=== PATIENT | male | born 2005 | race Caucasian/White ===

== ENCOUNTER 2025-07-01 22:01 | Inpatient (IN) | payer MEDICAID ==
[~2025-07-01] VITALS: Ht 182.9 cm; Wt 73.9 kg
[2025-07-01 22:04] VITALS: O2SAT 100
[2025-07-01 23:34] LABS: BASOPHILS % 0.2 % (0.0-2.0); EOSINOPHILS % 1.7 % (0.0-5.0); HEMATOCRIT. 41.5 % (42.0-52.0); HEMOGLOBIN. 13.5 g/dL (14.0-18.0); LYMPHOCYTES % 9.6 % (20.0-50.0); MEAN PLATELET VOLUME 10.9 fl (7.4-10.4); MONOCYTES % 6.9 % (2.0-8.0); NEUTROPHILS % 81.6 % (40.0-76.0); PLATELET 191 x1000/uL (130-400); RED BLOOD CELL COUNT 4.82 mill/uL (4.7-6.1); RED CELL DISTRIBUTION WIDTH 14.7 % (11.6-14.6)
[2025-07-01 23:45] LABS: CREATININE 0.6 mg/dL (0.6-1.3); TROPONIN I HIGH SENSITIVITY < 4 ng/L (3.0-53); UREA NITROGEN BLOOD 8 mg/dL (9-23)
[2025-07-01 23:47] LABS: ASPARTATE AMINOTRANSFERASE 10 IU/L (<34); BILIRUBIN DIRECT 0.2 mg/dL (<=3.0); BILIRUBIN TOTAL 0.5 mg/dL (0.1-1.0)
[2025-07-01 23:48] LABS: PROTEIN TOTAL 6.3 g/dL (6.0-8.3)
[2025-07-02] MEDS: CALCIUM GLUCONATE 1GM PREMIX 50 ML IV NR (00:55)
[2025-07-02] MEDS: POTASSIUM CHLORIDE 20MEQ/PACKET PO NR (00:56)
[2025-07-02] MEDS: MAGNESIUM 2 G PREMIX 50 ML IV NR (02:36)
[2025-07-02] MEDS ORDERED: IPRATROPIUM/ALBUTEROL 0.5-3(2.5)MG/3ML NEB HHN PRN (03:15)
[2025-07-02] MEDS ORDERED: ACETAMINOPHEN 325MG TABLET PO PRN ×2 (03:15)
[2025-07-02] MEDS ORDERED: ONDANSETRON HCL 4MG/2ML INJ IV PRN (03:15)
[2025-07-02] MEDS ORDERED: ZOLPIDEM TARTRATE 5MG TABLET PO PRN (03:15)
[2025-07-02 03:30] VITALS: BP 115/56; PULSE 47; RESP 16; TEMP 36.6404
[2025-07-02 08:00] VITALS: BP 122/58; PULSE 60; RESP 18; TEMP 36.7; O2SAT 100
[2025-07-02 12:00] VITALS: BP 126/73; PULSE 55; RESP 18; TEMP 36.3; O2SAT 100
[2025-07-02 13:22] LABS: LDL CHOLESTEROL 83.0 mg/dL (5-100); PHOSPHORUS 2.8 mg/dL (2.5-4.9); TRIGLYCERIDE 78.0 mg/dL (0-150)
[2025-07-02 13:23] LABS: TROPONIN I HIGH SENSITIVITY < 4 ng/L (3.0-53)
[2025-07-02 13:26] LABS: T4 FREE 1.41 ng/dL (0.89-1.76)
[2025-07-02 16:00] VITALS: BP 111/61; PULSE 50; RESP 18; TEMP 36.4; O2SAT 100
[2025-07-02 20:00] VITALS: BP 115/73; PULSE 49; RESP 16; TEMP 36.7; O2SAT 100
[2025-07-02 21:25] LABS: CREATINE KINASE MB FRACTION < 0.5 ng/mL (0.5-3.6); TROPONIN I HIGH SENSITIVITY < 4 ng/L (3.0-53)
[2025-07-03] VITALS: BP 118/74; PULSE 52; RESP 16; TEMP 36.5; O2SAT 99
[2025-07-03 04:00] VITALS: BP 111/54; PULSE 45; RESP 16; TEMP 36.4; O2SAT 98
[2025-07-03 06:03] LABS: BASOPHILS % 0.6 % (0.0-2.0); EOSINOPHILS % 3.7 % (0.0-5.0); HEMATOCRIT. 41.6 % (42.0-52.0); HEMOGLOBIN. 13.7 g/dL (14.0-18.0); LYMPHOCYTES % 26.3 % (20.0-50.0); MEAN PLATELET VOLUME 10.8 fl (7.4-10.4); MONOCYTES % 8.8 % (2.0-8.0); NEUTROPHILS % 60.6 % (40.0-76.0); PLATELET 193 x1000/uL (130-400); RED BLOOD CELL COUNT 4.87 mill/uL (4.7-6.1); RED CELL DISTRIBUTION WIDTH 15.3 % (11.6-14.6)
[2025-07-03 06:13] LABS: CREATININE 0.8 mg/dL (0.6-1.3); UREA NITROGEN BLOOD 7 mg/dL (9-23)
[2025-07-03 08:00] VITALS: BP 121/56; PULSE 49; RESP 16; TEMP 36.9; O2SAT 98
[2025-07-03 12:00] VITALS: BP 124/65; PULSE 51; RESP 18; TEMP 36.3; O2SAT 100
[2025-07-03 16:00] VITALS: BP 121/66; PULSE 47; RESP 18; TEMP 36.6; O2SAT 100
[2025-07-03 20:00] VITALS: BP 122/71; PULSE 49; RESP 18; TEMP 36.7; O2SAT 100
== END 2025-07-03 21:45 | disposition left against medical advice (07) | DRG 48 ==
LOC: EDBD 22:01 → ER 22:01 → 5WST 07-02 02:23 → EDBEDREQTM 07-02 02:31 → EDBEDREQ 07-02 02:31 → ENRESERV 07-02 02:42
PROVIDERS: ADMIT Student in an Organized Health Care Education/Training Program; ATTEND Student in an Organized Health Care Education/Training Program
DX: G90.89 Other disorders of autonomic nervous system (principal); E83.51 Hypocalcemia; E83.42 Hypomagnesemia; F12.10 Cannabis abuse, uncomplicated; Z53.29 Procedure and treatment not carried out because of patient's decision for other reasons; E87.6 Hypokalemia; R00.1 Bradycardia, unspecified; R63.0 Anorexia
CPT/HCPCS: 36415; 71045; 80048; 80061; 80076; 80320; 82550; 82553; 83036; 83735; 83880; 84100; 84439; 84443; 84484; 85025; 85379; 93005; 93306; 96365; 96366; 99285; A4606; J0612; J3475; G0480